=== PATIENT | female | born 1985 | race Caucasian/White ===

== ENCOUNTER → 2017-10-25 | Emergency (ER) | payer OTHER ==
[~2017-10-25] VITALS: Ht 157.5 cm; Wt 61.2 kg
[~2017-10-25] MED LIST: ALPRAZOLAM0.25 MG PO; OCELLA 3 MG-0.1 EACH; PEPCID40 MG PO; PHENERGAN25 MG PO; PROVENTIL0.5 ML/2.5; SINGULAIR4 MG
== END | disposition home or self-care (01) ==
LOC: ER 21:11
DX: K52.89 Other specified noninfective gastroenteritis and colitis (principal)

== ENCOUNTER 2018-11-21 08:56 | Emergency (ER) | payer OTHER ==
[~2018-11-21] VITALS: Ht 160 cm; Wt 61.2 kg
== END 2018-11-21 14:33 | disposition home or self-care (01) ==
LOC: ER 08:56
DX: N39.0 Urinary tract infection, site not specified (principal)

== ENCOUNTER 2021-07-31 19:13 | Emergency (ER) | payer OTHER ==
[~2021-07-31] VITALS: Ht 160 cm; Wt 58.5 kg
== END 2021-07-31 22:21 | disposition home or self-care (01) ==
LOC: ER 19:13
DX: J06.9 Acute upper respiratory infection, unspecified (principal); Z20.822 Contact with and (suspected) exposure to COVID-19

== ENCOUNTER 2021-12-15 15:11 | Outpatient (CLI) | payer OTHER | END 2021-12-15 16:47 | disposition home or self-care (01) | LOC: PRENATAL 15:11 | PROVIDERS: ATTEND Obstetrics & Gynecology Maternal & Fetal Medicine | DX: O36.80X0 Pregnancy with inconclusive fetal viability, not applicable or unspecified (principal); O09.519 Supervision of elderly primigravida, unspecified trimester; O30.90 Multiple gestation, unspecified, unspecified trimester; Z3A.14 14 weeks gestation of pregnancy ==

== ENCOUNTER 2022-01-23 09:07 | Outpatient (CLI) | payer OTHER | END 2022-01-23 11:21 | disposition home or self-care (01) | LOC: PRENATAL 09:07 | PROVIDERS: ATTEND Obstetrics & Gynecology Maternal & Fetal Medicine | DX: O35.1XX1 Maternal care for (suspected) chromosomal abnormality in fetus, fetus 1 (principal); O35.3XX0 Maternal care for (suspected) damage to fetus from viral disease in mother, not applicable or unspecified; O30.049 Twin pregnancy, dichorionic/diamniotic, unspecified trimester; O09.519 Supervision of elderly primigravida, unspecified trimester; O30.90 Multiple gestation, unspecified, unspecified trimester; O44.00 Complete placenta previa NOS or without hemorrhage, unspecified trimester; Z3A.20 20 weeks gestation of pregnancy ==

== ENCOUNTER 2022-03-23 07:53 | Outpatient (CLI) | payer OTHER | END 2022-03-23 09:20 | disposition home or self-care (01) | LOC: PRENATAL 07:53 | PROVIDERS: ATTEND Obstetrics & Gynecology Maternal & Fetal Medicine | DX: O26.849 Uterine size-date discrepancy, unspecified trimester (principal); O09.519 Supervision of elderly primigravida, unspecified trimester; O30.90 Multiple gestation, unspecified, unspecified trimester; O44.00 Complete placenta previa NOS or without hemorrhage, unspecified trimester; Z3A.28 28 weeks gestation of pregnancy ==